=== PATIENT | male | born 1995 | race Caucasian/White ===

== ENCOUNTER 2018-05-06 08:13 | Day surgery (SDC) | payer OTHER ==
[~2018-05-06] VITALS: Ht 182.9 cm; Wt 119.0 kg
[2018-05-06] MEDS ORDERED: NO MEDS (08:37)
[2018-05-06 08:44] VITALS: BP 159/89; PULSE 80; RESP 14
--- NOTE | 2018-05-06 08:47 | PREAC ---
Date/Time of Note Date/Time of Note DATE: 05/06/18 TIME: 08:47 Anesthesia Eval and Record Evaluation Time Pre-Procedure Interview DATE: 05/06/18 TIME: 08:47 Age 22 Sex male NPO: 8 hrs Preoperative diagnosis gerd Planned procedure colonoscopy Past Medical History Past Medical History: Includes GI: Morbid obesity Surgery & Anesthesia Issues No known issue Meds Anticoagulation: No Beta Marcella within 24 hr: No Reason Beta Marcella not given: Pt. not on B-Marcella Reported Medications [No Meds] No Conflict Check 05/06/18 Meds reviewed: Yes Allergies Uncoded Allergies: PCN (Adverse Reaction, Unknown, 05/06/18) Allergies Reviewed: Yes Labs/Studies Labs Reviewed: Reviewed by anesthesiologist test: Negative Studies: ECG Pre-procedure Exam Airway: Adequate mouth opening, Adequate thyromental dist Mallampati: Mallampati II Teeth: Normal Lung: Normal Heart: Normal ASA Physical Status ASA physical status: 2 Emergency: None Planned Anesthetic General/MAC: MAC Pre-operative Attestations Prior to commencing anesthesia and surgery, the patient was re-evaluated, there was verification of: *The patient's identity *The results of appropriate recent lab work and preoperative vital signs *The above evaluation not changing prior to induction *Anesthetic plan, risk benefits, alternative and complications discussed with patient/family; questions answered; patient/family understands, accepts and wishes to proceed. ABDIRASHID DAILEY May 06, 2018 08:47
[2018-05-06 09:35] VITALS: BP 146/73; PULSE 72; RESP 22
--- NOTE | 2018-05-06 18:40 | PAC ---
Date/Time of Note Date/Time of Note DATE: 05/06/18 TIME: 18:40 Post-Anesthesia Notes Post-Anesthesia Note Last documented vital signs Vital Signs Date Temp Pulse Resp B/P (MAP) Pulse Ox O2 O2 Flow FiO2 Time Delivery Rate 05/06/18 72 22 146/73 Room Air 09:35 (97) 05/06/18 97.7 100 08:44 Activity: WNL Respiratory function: WNL Cardiovascular function: WNL Mental status: Baseline Pain reasonably controlled: Yes Hydration appropriate: Yes Nausea/Vomiting absent: Yes ABDIRASHID DAILEY May 06, 2018 18:40
== END 2018-05-06 13:09 | disposition home or self-care (01) ==
LOC: GIL 08:13
PROVIDERS: ATTEND Internal Medicine Gastroenterology
DX: R19.4 Change in bowel habit (principal); K64.8 Other hemorrhoids; E66.01 Morbid (severe) obesity due to excess calories; Z68.35 Body mass index [BMI] 35.0-35.9, adult
CPT/HCPCS: 45378; 88305; Z7610